=== PATIENT | female | born 1975 | race Hispanic/Latino ===

== ENCOUNTER 2019-07-25 12:10 | Inpatient (IN) | payer MEDICAID | END 2019-07-27 18:22 | disposition home or self-care (01) | LOC: EDH 12:10 → EDHIP 15:33 → 3CH 17:24 | DX: A41.9 Sepsis, unspecified organism (principal); E87.2 Acidosis; E11.65 Type 2 diabetes mellitus with hyperglycemia; N39.0 Urinary tract infection, site not specified; E66.01 Morbid (severe) obesity due to excess calories; Z68.43 Body mass index [BMI] 50.0-59.9, adult; E86.1 Hypovolemia ==

== ENCOUNTER 2021-02-20 11:48 | Inpatient (IN) | payer MEDICAID, OTHER ==
[~2021-02-20] VITALS: Ht 162.6 cm; Wt 98.9 kg
[~2021-02-20 11:48] MED LIST: CEFD300C3 PO; FERR325T22 PO; FURO40TA5 PO; INSREG SQ; INSU100I35 SQ; LISI40TA9 PO; METF-446 PO; PREG150C PO; SIMV-46 PO; VENL-63 PO
[2021-02-20 12:27] LABS: APPEARANCE,URINE CLEAR (CLEAR); BILIRUBIN,URINE MODERATE (NEGATIVE); COLOR,URINE ORANGE (YELLOW); GLUCOSE, URINE (UA) 100 mg/dL (NEGATIVE); KETONES,URINE 15 mg/dL (NEGATIVE); LEUKOCYTE ESTERASE ,URINE NEGATIVE (NEGATIVE); NITRATE,URINE POSITIVE (NEGATIVE); OCCULT BLOOD,URINE NEGATIVE (NEGATIVE); PH,URINE 6.5 (5.0-8.0); PROTEIN,URINE 100 mg/dL (NEGATIVE); UROBILINOGEN,URINE >=8.0 mg/dL (0.2-1.0)
[2021-02-20 12:47] LABS: BASOPHILS % (AUTO) 0.3 % (0.0-5.0); EOSINOPHILS % (AUTO) 4.4 % (0.0-8.0); HEMATOCRIT 42.8 % (36-48); LYMPHOCYTES % (AUTO) 16.6 % (21.0-51.0); MEAN CORPUSCULAR HEMOGLOBIN 27.8 pg (27.0-33.0); MEAN CORPUSCULAR HGB CONC 34.8 g/dL (32.0-36.0); MEAN CORPUSCULAR VOLUME 79.9 fL (79-99); MONOCYTES % (AUTO) 6.2 % (3.0-13.0); NEUTROPHILS % (AUTO) 72.2 % (40.0-77.0); PLATELET COUNT (AUTO) 219 K/uL (130-400); RED BLOOD CELL COUNT(AUTO) 5.36 MIL/uL (4.00-5.50); WHITE BLOOD COUNT (AUTO) 7.9 K/uL (4.8-10.8)
[2021-02-20 12:49] LABS: BACTERIA,URINE Moderate /HPF (None Seen); MUCUS,URINE Moderate LPF (None Seen); RBC,URINE 0-1 /HPF (0-1); SQUAMOUS EPITHELIAL CELL,UR Many /HPF (0-2)
[2021-02-20] MEDS ORDERED: ACETAMINOPHEN 325 MG TAB ONE (13:25)
[2021-02-20] MEDS ORDERED: ZOSYN 3.375GM+NS 50ML 50 ML IV ONE ×2 (13:25→22:01)
[2021-02-20] MEDS ORDERED: ONDANSETRON 4MG INJ ONE (13:25)
[2021-02-20] MEDS ORDERED: KETOROLAC 30MG VIAL (30MG/ML) ONE (13:25)
[2021-02-20 13:26] LABS: CREATININE 0.5 mg/dL (0.5-1.5); POTASSIUM 3.3 mmol/L (3.5-5.1)
[2021-02-20] MEDS ORDERED: MORPHINE 2 MG SYG ONE ×3 (13:26→22:01)
[2021-02-20 13:30] LABS: ALBUMIN 3.1 g/dL (3.5-5.0); BILIRUBIN,TOTAL 0.8 mg/dL (0.2-1.0); TOTAL PROTEIN, SERUM 7.4 g/dL (6.0-8.3)
[2021-02-20 17:18] LABS: HEMOGLOBIN A1C 11.9 % (4.0-6.0)
[2021-02-20 17:43] LABS: AMPHET/METH SCREEN,URINE NEGATIVE (NEGATIVE); BARBITURATE SCREEN, URINE NEGATIVE (NEGATIVE); BENZODIAZEPINES SCREEN,URINE NEGATIVE (NEGATIVE); CANNABINOID SCREEN,URINE POSITIVE (NEGATIVE); COCAINE SCREEN,URINE NEGATIVE (NEGATIVE); OPIATE SCREEN,URINE NEGATIVE (NEGATIVE); PHENCYCLIDINE SCREEN,URINE NEGATIVE (NEGATIVE)
[2021-02-20 19:38] LABS: CHOLESTEROL 199 mg/dL (<200); HDL CHOLESTEROL 111 mg/dL (35-85); LDL DIRECT 113 mg/dL (0-99); TRIGLYCERIDES 166 mg/dL (30-200)
[2021-02-20] MEDS ORDERED: FAMOTIDINE 20MG VIAL IV ONE (22:02)
[2021-02-21 08:18] LABS: BASOPHILS % (AUTO) 0.4 % (0.0-5.0); EOSINOPHILS % (AUTO) 5.5 % (0.0-8.0); HEMATOCRIT 42.6 % (36-48); LYMPHOCYTES % (AUTO) 47.1 % (21.0-51.0); MEAN CORPUSCULAR HEMOGLOBIN 27.6 pg (27.0-33.0); MEAN CORPUSCULAR HGB CONC 33.6 g/dL (32.0-36.0); MEAN CORPUSCULAR VOLUME 82.1 fL (79-99); MONOCYTES % (AUTO) 5.7 % (3.0-13.0); NEUTROPHILS % (AUTO) 40.9 % (40.0-77.0); PLATELET COUNT (AUTO) 235 K/uL (130-400); RED BLOOD CELL COUNT(AUTO) 5.19 MIL/uL (4.00-5.50); RED CELL DISTRIBUTION WIDTH 14.4 % (11.0-15.5); WHITE BLOOD COUNT (AUTO) 5.2 K/uL (4.8-10.8)
[2021-02-21 08:37] LABS: ALBUMIN 2.9 g/dL (3.5-5.0); BILIRUBIN,TOTAL 0.6 mg/dL (0.2-1.0); CREATININE 0.5 mg/dL (0.5-1.5); POTASSIUM 3.7 mmol/L (3.5-5.1); TOTAL PROTEIN, SERUM 6.9 g/dL (6.0-8.3)
[2021-02-21] MEDS: ENOXAPARIN SODIUM 40 MG/0.4 ML SYRINGE SQ SCH (09:00)
[2021-02-21] MEDS: FAMOTIDINE 20MG VIAL IV SCH ×2 (09:00→21:20)
[2021-02-21] MEDS ORDERED: ZOSYN 3.375GM+NS 50ML 50 ML IV ONE (09:03)
[2021-02-21] MEDS ORDERED: MORPHINE 2 MG SYG ONE (09:04)
[2021-02-21] MEDS ORDERED: FAMOTIDINE 20MG VIAL IV ONE (09:04)
[2021-02-21] MEDS ORDERED: 0.9%NACL 50ML 50 ML IV ONE (09:05)
[2021-02-21] MEDS ORDERED: LACTULOSE 20 GM/30 ML UDCUP ONE (10:42)
[2021-02-21] MEDS ORDERED: LACTULOSE 20 GM/30 ML UDCUP PO SCH (10:45)
[2021-02-21 11:00] VITALS: BP 168/86
[2021-02-21] MEDS: INSULIN HUMULIN R 100 UNIT/ML 3ML SQ SCH ×3 (11:30→21:00)
[2021-02-21] MEDS: 0.9%NACL 1000ML 1,000 ML IV SCH ×2 (11:43→21:28)
[2021-02-21 12:00] VITALS: BP 152/84
[2021-02-21] MEDS ORDERED: LACTULOSE 20 GM/30 ML UDCUP PO PRN (12:45)
[2021-02-21 16:00] VITALS: BP 126/83
[2021-02-21] MEDS: ZOSYN 3.375GM+NS 50ML 50 ML IV SCH (17:32)
[2021-02-21] MEDS: MORPHINE 2 MG SYG IV PRN ×2 (18:12→22:58)
[2021-02-21] MEDS: ONDANSETRON 4MG INJ IV PRN (18:22)
[2021-02-21 19:49] VITALS: BP 130/80
[2021-02-21] MEDS ORDERED: VENL-191 PO (21:36)
[2021-02-21] MEDS ORDERED: FURO40TA5 PO (21:36)
[2021-02-21] MEDS ORDERED: HYDR-4030 PO (21:36)
[2021-02-21] MEDS ORDERED: PREG150C PO (21:36)
[2021-02-21 23:08] VITALS: BP 146/78
[2021-02-22] VITALS (23 sets, daily range): BP systolic 124–176; BP diastolic 71–92
[2021-02-22] MEDS: ZOSYN 3.375GM+NS 50ML 50 ML IV SCH ×3 (01:52→17:51)
[2021-02-22 04:37] LABS: BASOPHILS % (AUTO) 0.5 % (0.0-5.0); EOSINOPHILS % (AUTO) 4.6 % (0.0-8.0); HEMATOCRIT 38.6 % (36-48); LYMPHOCYTES % (AUTO) 46.3 % (21.0-51.0); MEAN CORPUSCULAR HEMOGLOBIN 28.1 pg (27.0-33.0); MEAN CORPUSCULAR HGB CONC 34.5 g/dL (32.0-36.0); MEAN CORPUSCULAR VOLUME 81.4 fL (79-99); MONOCYTES % (AUTO) 6.9 % (3.0-13.0); NEUTROPHILS % (AUTO) 41.4 % (40.0-77.0); PLATELET COUNT (AUTO) 223 K/uL (130-400); RED BLOOD CELL COUNT(AUTO) 4.74 MIL/uL (4.00-5.50); RED CELL DISTRIBUTION WIDTH 14.1 % (11.0-15.5); WHITE BLOOD COUNT (AUTO) 5.9 K/uL (4.8-10.8)
[2021-02-22 04:48] LABS: ALBUMIN 2.6 g/dL (3.5-5.0); BILIRUBIN,TOTAL 0.6 mg/dL (0.2-1.0); CREATININE 0.5 mg/dL (0.5-1.5); POTASSIUM 3.1 mmol/L (3.5-5.1); TOTAL PROTEIN, SERUM 6.5 g/dL (6.0-8.3)
[2021-02-22] MEDS: POTASSIUM CHLORIDE 20MEQ/100ML 100 ML IV PRN ×2 (04:57→09:21)
[2021-02-22] MEDS ORDERED: FLU VACC QS2020-21(6MOS UP)/PF 60 MCG/0.5 ML ML IM ONE ×2 (06:30→17:53)
[2021-02-22] MEDS: INSULIN HUMULIN R 100 UNIT/ML 3ML SQ SCH ×4 (07:30→20:59)
[2021-02-22] MEDS: MORPHINE 2 MG SYG IV PRN ×2 (07:58→16:18)
[2021-02-22] MEDS: 0.9%NACL 1000ML 1,000 ML IV SCH ×3 (08:03→18:12)
[2021-02-22] MEDS: ENOXAPARIN SODIUM 40 MG/0.4 ML SYRINGE SQ SCH (09:00)
[2021-02-22] MEDS: FAMOTIDINE 20MG VIAL IV SCH ×2 (09:21→21:02)
[2021-02-22] MEDS ORDERED: BUPIVACAINE/PF 0.5% 30ML VIAL ONE (11:17)
[2021-02-22] MEDS ORDERED: INDOCYANINE GREEN 25 MG VIAL IJ ONE (12:44)
[2021-02-22] MEDS ORDERED: PROPOFOL 10 MG/ML 20ML VIAL IV ONE (12:59)
[2021-02-22] MEDS ORDERED: FENTANYL CITRATE PF 50 MCG/1 ML 2ML VIAL ONE (13:00)
[2021-02-22] MEDS ORDERED: MIDAZOLAM HCL 1 MG/ML 2ML VIAL ONE (13:00)
[2021-02-22] MEDS ORDERED: ROCURONIUM 10MG/1ML SYR 10 MG/ML ML ONE ×2 (13:00→13:41)
[2021-02-22] MEDS ORDERED: NEOSTIGMINE 5MG/5ML SYR IV ONE (14:25)
[2021-02-22] MEDS ORDERED: GLYCOPYRROLATE 1 MG/5 ML SYRINGE ONE (14:25)
[2021-02-22] MEDS ORDERED: MEPERIDINE-PF 25 MG/ML SYG ONE (14:46)
[2021-02-22] MEDS ORDERED: METOCLOPRAMIDE 10 MG/2 ML VIAL ONE (14:52)
[2021-02-22] MEDS: ONDANSETRON 4MG INJ IV PRN (14:55)
[2021-02-22] MEDS ORDERED: MORPHINE 4 MG SYG IV PRN (16:30)
[2021-02-22] MEDS: ACETAMINOPHEN WITH CODEINE 1 TAB TAB PO PRN (18:17)
[2021-02-23 00:30] VITALS: BP 139/84
[2021-02-23] MEDS: ACETAMINOPHEN WITH CODEINE 1 TAB TAB PO PRN ×2 (02:02→08:45)
[2021-02-23] MEDS: ZOSYN 3.375GM+NS 50ML 50 ML IV SCH ×2 (02:02→10:13)
[2021-02-23] MEDS: 0.9%NACL 1000ML 1,000 ML IV SCH (02:07)
[2021-02-23 04:41] VITALS: BP 138/77
[2021-02-23 05:31] LABS: BASOPHILS % (AUTO) 0.6 % (0.0-5.0); EOSINOPHILS % (AUTO) 1.7 % (0.0-8.0); HEMATOCRIT 40.1 % (36-48); LYMPHOCYTES % (AUTO) 32.5 % (21.0-51.0); MEAN CORPUSCULAR HEMOGLOBIN 28.1 pg (27.0-33.0); MEAN CORPUSCULAR HGB CONC 34.9 g/dL (32.0-36.0); MEAN CORPUSCULAR VOLUME 80.4 fL (79-99); MONOCYTES % (AUTO) 5.2 % (3.0-13.0); NEUTROPHILS % (AUTO) 59.7 % (40.0-77.0); PLATELET COUNT (AUTO) 265 K/uL (130-400); RED BLOOD CELL COUNT(AUTO) 4.99 MIL/uL (4.00-5.50); RED CELL DISTRIBUTION WIDTH 14.2 % (11.0-15.5); WHITE BLOOD COUNT (AUTO) 8.6 K/uL (4.8-10.8)
[2021-02-23 05:45] LABS: BILIRUBIN,TOTAL 0.8 mg/dL (0.2-1.0); CREATININE 0.5 mg/dL (0.5-1.5); POTASSIUM 3.3 mmol/L (3.5-5.1); TOTAL PROTEIN, SERUM 6.9 g/dL (6.0-8.3)
[2021-02-23] MEDS: POTASSIUM CHLORIDE 20MEQ/100ML 100 ML IV PRN (06:18)
[2021-02-23] MEDS ORDERED: KCL 20 MEQ ERTAB PO SCH (07:15)
[2021-02-23] MEDS: INSULIN HUMULIN R 100 UNIT/ML 3ML SQ SCH ×3 (07:30→16:47)
[2021-02-23 08:00] VITALS: BP 146/87
[2021-02-23] MEDS: FAMOTIDINE 20MG VIAL IV SCH (08:43)
[2021-02-23] MEDS: ENOXAPARIN SODIUM 40 MG/0.4 ML SYRINGE SQ SCH (08:44)
[2021-02-23] MEDS: ONDANSETRON 4MG INJ IV PRN (10:34)
[2021-02-23 11:11] VITALS: BP 144/88
[2021-02-23] MEDS ORDERED: ONDA4TAB4 PO (16:19)
[2021-02-23 16:24] VITALS: BP 133/81
== END 2021-02-23 17:55 | disposition home or self-care (01) | DRG 418 ==
LOC: EDH 11:48 → EDHIP 11:49 → WSH 02-21 11:00
PROVIDERS: ADMIT Internal Medicine; ATTEND Internal Medicine
PROC: 8E0W4CZ Robotic Assisted Procedure of Trunk Region, Percutaneous Endoscopic Approach (ICD-10-PCS; 2021-02-22)
PROC: 3E02340 Introduction of Influenza Vaccine into Muscle, Percutaneous Approach (ICD-10-PCS; 2021-02-22)
PROC: 0FT44ZZ Resection of Gallbladder, Percutaneous Endoscopic Approach (ICD-10-PCS; principal; 2021-02-22 12:52)
DX: K80.00 Calculus of gallbladder with acute cholecystitis without obstruction (principal); N39.0 Urinary tract infection, site not specified; E87.1 Hypo-osmolality and hyponatremia; Z68.42 Body mass index [BMI] 45.0-49.9, adult; E66.01 Morbid (severe) obesity due to excess calories; E11.9 Type 2 diabetes mellitus without complications; I10 Essential (primary) hypertension; E78.5 Hyperlipidemia, unspecified; F41.1 Generalized anxiety disorder; K82.8 Other specified diseases of gallbladder; E87.6 Hypokalemia; F41.0 Panic disorder [episodic paroxysmal anxiety]; K59.00 Constipation, unspecified; K76.0 Fatty (change of) liver, not elsewhere classified; Z87.891 Personal history of nicotine dependence; Z23 Encounter for immunization
CPT/HCPCS: 36415; 74176; 76705; 80053; 80061; 80305; 81001; 81025; 82150; 82948; 83036; 83605; 83690; 85025; 87040; 87088; 88304; 93005; G0378; J1650; J1815; J1885; J2175; J2250; J2270; J2405; J2543; J2704; J2710; J2765; J3010; J3480; J3490; J7030; J7120; Q2035

== ENCOUNTER 2021-03-02 06:07 | Emergency (ER) | payer MEDICAID, OTHER ==
[~2021-03-02 06:07] MED LIST changes: -CEFD300C3 PO; +HYDR-4030 PO; +ONDA4TAB4 PO; +VENL-191 PO; -VENL-63 PO
[2021-03-02] MEDS ORDERED: METOCLOPRAMIDE 10 MG/2 ML VIAL ONE (06:53)
[2021-03-02] MEDS ORDERED: ONDANSETRON HCL 4 MG/2 ML VIAL ONE (06:53)
[2021-03-02 06:58] LABS: BASOPHILS % (AUTO) 0.5 % (0.0-5.0); EOSINOPHILS % (AUTO) 2.5 % (0.0-8.0); HEMATOCRIT 40.1 % (36-48); LYMPHOCYTES % (AUTO) 23.8 % (21.0-51.0); MEAN CORPUSCULAR HEMOGLOBIN 27.7 pg (27.0-33.0); MEAN CORPUSCULAR HGB CONC 34.2 g/dL (32.0-36.0); MEAN CORPUSCULAR VOLUME 81.2 fL (79-99); MONOCYTES % (AUTO) 7.2 % (3.0-13.0); NEUTROPHILS % (AUTO) 65.5 % (40.0-77.0); PLATELET COUNT (AUTO) 361 K/uL (130-400); RED BLOOD CELL COUNT(AUTO) 4.94 MIL/uL (4.00-5.50); RED CELL DISTRIBUTION WIDTH 14.2 % (11.0-15.5)
[2021-03-02 07:12] LABS: ALBUMIN 2.9 g/dL (3.5-5.0); CREATININE 0.5 mg/dL (0.5-1.5); POTASSIUM 3.1 mmol/L (3.5-5.1); TOTAL PROTEIN, SERUM 7.1 g/dL (6.0-8.3)
[2021-03-02 08:10] LABS: APPEARANCE,URINE Clear (CLEAR); BILIRUBIN,URINE Negative (NEGATIVE); COLOR,URINE Yellow (YELLOW); GLUCOSE, URINE (UA) Negative (NEGATIVE); KETONES,URINE Negative (NEGATIVE); LEUKOCYTE ESTERASE ,URINE Small (NEGATIVE); NITRATE,URINE Negative (NEGATIVE); OCCULT BLOOD,URINE Negative (NEGATIVE); PH,URINE 7.5 (5.0-8.0); PROTEIN,URINE Negative (NEGATIVE)
[2021-03-02] MEDS ORDERED: IOHEXOL-350 75 ML VIAL IV ONE (08:14)
[2021-03-02 08:27] LABS: BACTERIA,URINE Rare /HPF (None Seen); RBC,URINE 0-1 /HPF (0-1); SQUAMOUS EPITHELIAL CELL,UR Few /HPF (0-2); WBC,URINE 0-1 /HPF (0-1)
[2021-03-02] MEDS ORDERED: KETOROLAC TROMETHAMINE 30MG/ML ONE (10:02)
== END 2021-03-02 10:39 | disposition home or self-care (01) ==
LOC: EDH 06:07
DX: G89.18 Other acute postprocedural pain (principal); R10.32 Left lower quadrant pain; R11.2 Nausea with vomiting, unspecified; I10 Essential (primary) hypertension; E11.9 Type 2 diabetes mellitus without complications; M19.90 Unspecified osteoarthritis, unspecified site; F41.9 Anxiety disorder, unspecified; F32.9 Major depressive disorder, single episode, unspecified; Z72.0 Tobacco use; Z90.49 Acquired absence of other specified parts of digestive tract; Z98.890 Other specified postprocedural states
CPT/HCPCS: 36415; 74177; 80053; 81001; 83605; 83690; 85025; 96361; 96374; 96375; 99285; J1885; J2405; J2765; Q9967

== ENCOUNTER 2021-07-12 16:23 | Emergency (ER) | payer MEDICAID ==
[~2021-07-12] VITALS: Ht 162.6 cm; Wt 99.8 kg
[2021-07-12 16:23] VITALS: BP 163/85
== END 2021-07-12 21:10 | disposition left against medical advice (07) ==
LOC: EDH 16:23
DX: Z53.21 Procedure and treatment not carried out due to patient leaving prior to being seen by health care provider (principal)

== ENCOUNTER 2022-01-15 10:23 | Emergency (ER) | payer MEDICAID ==
[~2022-01-15] VITALS: Ht 162.6 cm; Wt 102.2 kg
[2022-01-15 11:44] LABS: APPEARANCE,URINE CLEAR (CLEAR); BILIRUBIN,URINE NEGATIVE (NEGATIVE); COLOR,URINE YELLOW (YELLOW); GLUCOSE, URINE (UA) NEGATIVE (NEGATIVE); HCG,QUAL RESULT NEGATIVE (NEGATIVE); KETONES,URINE NEGATIVE (NEGATIVE); LEUKOCYTE ESTERASE ,URINE NEGATIVE (NEGATIVE); NITRATE,URINE NEGATIVE (NEGATIVE); OCCULT BLOOD,URINE NEGATIVE (NEGATIVE); PROTEIN,URINE NEGATIVE (NEGATIVE); UROBILINOGEN,URINE 0.2 mg/dL (0.2-1.0)
[2022-01-15 12:09] LABS: BASOPHILS % (AUTO) 0.7 % (0.0-5.0); HEMATOCRIT 36.4 % (36-48); LYMPHOCYTES % (AUTO) 32.9 % (21.0-51.0); MEAN CORPUSCULAR HEMOGLOBIN 28.2 pg (27.0-33.0); MEAN CORPUSCULAR VOLUME 85.6 fL (79-99); MONOCYTES % (AUTO) 4.7 % (3.0-13.0); NEUTROPHILS % (AUTO) 56.2 % (40.0-77.0); PLATELET COUNT (AUTO) 294 K/uL (130-400); RED BLOOD CELL COUNT(AUTO) 4.25 MIL/uL (4.00-5.50); RED CELL DISTRIBUTION WIDTH 13.6 % (11.0-15.5); WHITE BLOOD COUNT (AUTO) 7.6 K/uL (4.8-10.8)
[2022-01-15 12:16] LABS: CREATININE 0.5 mg/dL (0.5-1.5)
[2022-01-15 12:21] LABS: ALBUMIN 3.2 g/dL (3.5-5.0); BILIRUBIN,TOTAL 0.4 mg/dL (0.2-1.0); CRP QUANTITATIVE 8.5 mg/L (0.00-9.0); TOTAL PROTEIN, SERUM 7.1 g/dL (6.0-8.3)
[2022-01-15] MEDS ORDERED: GABA300S PO (12:45)
[2022-01-15] MEDS ORDERED: ACET-2247 PO (12:45)
[2022-01-15] MEDS ORDERED: CYCL10TA16 PO (12:45)
[2022-01-15] MEDS ORDERED: CYCLOBENZAPRINE HCL 10 MG TABLET PO ONE (13:00)
[2022-01-15] MEDS ORDERED: HYDROCODONE/ACETAMINOPHEN 10/325 MG TAB PO ONE (13:00)
[2022-01-15 14:00] VITALS: BP 156/80
== END 2022-01-15 13:46 | disposition home or self-care (01) ==
LOC: EDH 10:23
DX: B07.0 Plantar wart (principal); E11.9 Type 2 diabetes mellitus without complications; I10 Essential (primary) hypertension; E66.9 Obesity, unspecified; E78.00 Pure hypercholesterolemia, unspecified; Z90.49 Acquired absence of other specified parts of digestive tract; Z98.890 Other specified postprocedural states; Z79.4 Long term (current) use of insulin; Z79.899 Other long term (current) drug therapy
CPT/HCPCS: 36415; 73630; 80053; 81003; 81025; 83605; 85025; 86140

== ENCOUNTER 2022-03-09 13:16 | Emergency (ER) | payer MEDICAID ==
[~2022-03-09] VITALS: Ht 157.5 cm; Wt 99.8 kg
[~2022-03-09 13:16] MED LIST changes: +ACET-2247 PO; +CYCL10TA16 PO; +GABA300S PO
[2022-03-09] MEDS ORDERED: KETOROLAC 60 MG VIAL (30MG/ML) IM ONE (14:30)
[2022-03-09 15:01] VITALS: BP 115/79
== END 2022-03-09 15:18 | disposition home or self-care, planned readmission (81) ==
LOC: EDH 13:16
DX: S53.401A Unspecified sprain of right elbow, initial encounter (principal); E11.9 Type 2 diabetes mellitus without complications; E78.00 Pure hypercholesterolemia, unspecified; I10 Essential (primary) hypertension; Z79.899 Other long term (current) drug therapy; Z79.4 Long term (current) use of insulin; Z79.84 Long term (current) use of oral hypoglycemic drugs; Z90.89 Acquired absence of other organs; Z90.49 Acquired absence of other specified parts of digestive tract; Z98.890 Other specified postprocedural states; W18.30XA Fall on same level, unspecified, initial encounter; Y93.89 Activity, other specified; Y92.89 Other specified places as the place of occurrence of the external cause; Y99.8 Other external cause status
CPT/HCPCS: 73080; 81025; J1885

== ENCOUNTER 2022-07-08 22:51 | Emergency (ER) | payer MEDICAID ==
[~2022-07-08] VITALS: Ht 162.6 cm; Wt 104.3 kg
[~2022-07-08 22:51] MED LIST changes: -ACET-2247 PO; +ATOR40TA71 PO; -CYCL10TA16 PO; -FURO40TA5 PO; +GABA300C PO; -GABA300S PO; +HYDR-3422 PO; -HYDR-4030 PO; +LEVO-70 PO; -ONDA4TAB4 PO; -PREG150C PO; +QUET50TA PO; -SIMV-46 PO
[2022-07-08] MEDS ORDERED: AMOX1TAB16 PO (23:15)
[2022-07-08] MEDS ORDERED: ACET-2079 PO (23:15)
[2022-07-08 23:30] VITALS: BP 125/74
[2022-07-08] MEDS ORDERED: KETOROLAC 30MG VIAL (30MG/ML) IM ONE (23:30)
[2022-07-08] MEDS ORDERED: AMOX/CLAV 875/125MG TAB PO ONE (23:30)
[2022-07-08] MEDS ORDERED: ACETAMINOPHEN WITH CODEINE 1 TAB TAB PO ONE (23:30)
== END 2022-07-08 23:47 | disposition home or self-care (01) ==
LOC: EDH 22:51
DX: K08.89 Other specified disorders of teeth and supporting structures (principal); E11.9 Type 2 diabetes mellitus without complications; F32.A Depression, unspecified; F41.9 Anxiety disorder, unspecified; I10 Essential (primary) hypertension; E78.00 Pure hypercholesterolemia, unspecified; E66.9 Obesity, unspecified; Z79.1 Long term (current) use of non-steroidal anti-inflammatories (NSAID); Z79.4 Long term (current) use of insulin; Z79.899 Other long term (current) drug therapy; Z90.49 Acquired absence of other specified parts of digestive tract; Z68.39 Body mass index [BMI] 39.0-39.9, adult
CPT/HCPCS: 99283; 96372; J1885

== ENCOUNTER 2022-08-22 04:04 | Emergency (ER) | payer MEDICAID ==
[~2022-08-22] VITALS: Ht 162.6 cm; Wt 109.8 kg
[~2022-08-22 04:04] MED LIST changes: +ACET-2079 PO; +AMOX1TAB16 PO
[2022-08-22 04:49] LABS: BASOPHILS % (AUTO) 0.5 % (0.0-5.0); EOSINOPHILS % (AUTO) 8.8 % (0.0-8.0); HEMATOCRIT 34.7 % (36-48); LYMPHOCYTES % (AUTO) 27.2 % (21.0-51.0); MEAN CORPUSCULAR HEMOGLOBIN 27.9 pg (27.0-33.0); MEAN CORPUSCULAR HGB CONC 33.7 g/dL (32.0-36.0); MEAN CORPUSCULAR VOLUME 82.6 fL (79-99); MONOCYTES % (AUTO) 6.9 % (3.0-13.0); NEUTROPHILS % (AUTO) 56.2 % (40.0-77.0); PLATELET COUNT (AUTO) 281 K/uL (130-400); RED CELL DISTRIBUTION WIDTH 13.1 % (11.0-15.5); WHITE BLOOD COUNT (AUTO) 8.3 K/uL (4.8-10.8)
[2022-08-22 04:54] LABS: BILIRUBIN,URINE NEGATIVE (NEGATIVE); GLUCOSE, URINE (UA) NEGATIVE (NEGATIVE); KETONES,URINE NEGATIVE (NEGATIVE); LEUKOCYTE ESTERASE ,URINE NEGATIVE Leu/uL (NEGATIVE); NITRATE,URINE POSITIVE (NEGATIVE); OCCULT BLOOD,URINE NEGATIVE (NEGATIVE); PROTEIN,URINE NEGATIVE (NEGATIVE); UROBILINOGEN,URINE 0.2 mg/dL (0.2-1.0)
[2022-08-22 05:05] LABS: APPEARANCE,URINE CLEAR (CLEAR); COLOR,URINE YELLOW (YELLOW)
[2022-08-22 05:09] LABS: CREATININE 0.6 mg/dL (0.5-1.5); POTASSIUM 3.5 mmol/L (3.5-5.1)
[2022-08-22 05:10] LABS: BACTERIA,URINE Many /HPF (None Seen); RBC,URINE 0-1 /HPF (0-1); SQUAMOUS EPITHELIAL CELL,UR Rare /HPF (0-2)
[2022-08-22 05:14] LABS: ALBUMIN 3.2 g/dL (3.5-5.0); TOTAL PROTEIN, SERUM 7.4 g/dL (6.0-8.3)
[2022-08-22 05:18] LABS: AMPHET/METH SCREEN,URINE NEGATIVE (NEGATIVE); BARBITURATE SCREEN, URINE NEGATIVE (NEGATIVE); BENZODIAZEPINES SCREEN,URINE POSITIVE (NEGATIVE); CANNABINOID SCREEN,URINE POSITIVE (NEGATIVE); COCAINE SCREEN,URINE NEGATIVE (NEGATIVE); HCG,QUALITATIVE URINE NEGATIVE (NEGATIVE); PHENCYCLIDINE SCREEN,URINE NEGATIVE (NEGATIVE)
[2022-08-22 05:40] LABS: MAGNESIUM 1.4 mg/dL (1.80-2.40)
[2022-08-22] MEDS ORDERED: MAGNESIUM 4GM PREMIX 100ML 100 ML IV PRN (06:00)
[2022-08-22] MEDS ORDERED: POTASSIUM BICARB/CIT AC 25 MEQ TABLET.EFF PO ONE (06:00)
[2022-08-22] MEDS ORDERED: KETOROLAC 30MG VIAL (30MG/ML) IVP ONE (06:30)
[2022-08-22] MEDS ORDERED: MAGNESIUM 2GM PREMIX 50ML 100 ML IV ONE (06:38)
[2022-08-22] MEDS ORDERED: MAGNESIUM 2GM PREMIX 50ML 50 ML IV ONE (08:02)
[2022-08-22] MEDS ORDERED: ACETAMINOPHEN 325 MG TAB PO SCH (09:00)
[2022-08-22 10:45] VITALS: BP 127/70
== END 2022-08-22 10:48 | disposition home or self-care (01) ==
LOC: EDH 04:04
DX: E87.6 Hypokalemia (principal); R53.1 Weakness; E83.42 Hypomagnesemia; T42.4X5A Adverse effect of benzodiazepines, initial encounter; F41.9 Anxiety disorder, unspecified; E11.9 Type 2 diabetes mellitus without complications; E78.00 Pure hypercholesterolemia, unspecified; M54.10 Radiculopathy, site unspecified; F17.210 Nicotine dependence, cigarettes, uncomplicated; Z20.822 Contact with and (suspected) exposure to COVID-19; Z90.89 Acquired absence of other organs; Z90.49 Acquired absence of other specified parts of digestive tract; Z98.890 Other specified postprocedural states; Z79.899 Other long term (current) drug therapy; Z79.84 Long term (current) use of oral hypoglycemic drugs; Z79.4 Long term (current) use of insulin; Y92.89 Other specified places as the place of occurrence of the external cause
CPT/HCPCS: 99285; 96365; 70450; 96366; 87635; 96375; 82550; 83735; 84484; 80053; 80305; 85025; 87077; 87088; 87186; 87804 ×2; 81001; 81025; 36415; 73030; 93005; C9803; J3475 ×2; J1885

== ENCOUNTER 2022-11-24 13:30 | Emergency (ER) | payer MEDICAID ==
[~2022-11-24] VITALS: Ht 162.6 cm; Wt 111.1 kg
[2022-11-24 16:35] LABS: APPEARANCE,URINE CLEAR (CLEAR); BILIRUBIN,URINE NEGATIVE (NEGATIVE); COLOR,URINE LIGHT-YELLOW (YELLOW); GLUCOSE, URINE (UA) NEGATIVE (NEGATIVE); KETONES,URINE NEGATIVE (NEGATIVE); LEUKOCYTE ESTERASE ,URINE NEGATIVE Leu/uL (NEGATIVE); NITRATE,URINE NEGATIVE (NEGATIVE); OCCULT BLOOD,URINE NEGATIVE (NEGATIVE); PROTEIN,URINE NEGATIVE (NEGATIVE); UROBILINOGEN,URINE 0.2 mg/dL (0.2-1.0)
[2022-11-24 16:51] VITALS: BP 118/83
[2022-11-24 17:00] LABS: BACTERIA,URINE FEW /HPF (None Seen); MUCUS,URINE RARE LPF (None Seen); RBC,URINE 0-1 /HPF (0-1); SQUAMOUS EPITHELIAL CELL,UR RARE /HPF (0-2)
[2022-11-24 17:26] LABS: BASOPHILS % (AUTO) 0.4 % (0.0-5.0); EOSINOPHILS % (AUTO) 4.5 % (0.0-8.0); HEMATOCRIT 39.4 % (36-48); LYMPHOCYTES % (AUTO) 31.7 % (21.0-51.0); MEAN CORPUSCULAR HGB CONC 34.8 g/dL (32.0-36.0); MEAN CORPUSCULAR VOLUME 77.7 fL (79-99); MONOCYTES % (AUTO) 5.4 % (3.0-13.0); NEUTROPHILS % (AUTO) 57.7 % (40.0-77.0); PLATELET COUNT (AUTO) 250 K/uL (130-400); RED BLOOD CELL COUNT(AUTO) 5.07 MIL/uL (4.00-5.50); RED CELL DISTRIBUTION WIDTH 13.6 % (11.0-15.5); WHITE BLOOD COUNT (AUTO) 11.1 K/uL (4.8-10.8)
[2022-11-24 17:39] LABS: ALBUMIN 3.8 g/dL (3.5-5.0); CREATININE 1.1 mg/dL (0.5-1.5); TOTAL PROTEIN, SERUM 8.5 g/dL (6.0-8.3)
[2022-11-24 17:44] LABS: POTASSIUM 2.9 mmol/L (3.5-5.1)
[2022-11-24] MEDS ORDERED: POTASSIUM BICARB/CIT AC 25 MEQ TABLET.EFF PO ONE (18:00)
[2022-11-24] MEDS ORDERED: KETOROLAC 30MG VIAL (30MG/ML) IM ONE (18:30)
== END 2022-11-24 19:34 | disposition home or self-care (01) ==
LOC: EDH 13:30
DX: E87.6 Hypokalemia (principal); R10.10 Upper abdominal pain, unspecified; R11.2 Nausea with vomiting, unspecified; F32.9 Major depressive disorder, single episode, unspecified; F41.9 Anxiety disorder, unspecified; E11.9 Type 2 diabetes mellitus without complications; I10 Essential (primary) hypertension; E78.00 Pure hypercholesterolemia, unspecified; E66.9 Obesity, unspecified; Z79.899 Other long term (current) drug therapy; Z79.84 Long term (current) use of oral hypoglycemic drugs
CPT/HCPCS: 99284; 74176; 80053; 83690; 85025; 81001; 36415; 96372; J1885

== ENCOUNTER 2022-12-12 08:14 | Emergency (ER) | payer MEDICAID ==
[~2022-12-12] VITALS: Ht 162.6 cm; Wt 112.9 kg
[2022-12-12 08:38] LABS: HEMATOCRIT 36.1 % (36-48); MEAN CORPUSCULAR HEMOGLOBIN 27.2 pg (27.0-33.0); MEAN CORPUSCULAR HGB CONC 32.7 g/dL (32.0-36.0); MEAN CORPUSCULAR VOLUME 83.2 fL (79-99); RED BLOOD CELL COUNT(AUTO) 4.34 MIL/uL (4.00-5.50); RED CELL DISTRIBUTION WIDTH 15.4 % (11.0-15.5); WHITE BLOOD COUNT (AUTO) 9.7 K/uL (4.8-10.8)
[2022-12-12 08:46] LABS: CREATININE 0.6 mg/dL (0.5-1.5); POTASSIUM 3.7 mmol/L (3.5-5.1)
[2022-12-12 08:47] LABS: APPEARANCE,URINE CLEAR (CLEAR); BILIRUBIN,URINE NEGATIVE (NEGATIVE); COLOR,URINE LIGHT-YELLOW (YELLOW); GLUCOSE, URINE (UA) 70 mg/dL (NEGATIVE); KETONES,URINE NEGATIVE (NEGATIVE); LEUKOCYTE ESTERASE ,URINE 25 Leu/uL (NEGATIVE); NITRATE,URINE NEGATIVE (NEGATIVE); OCCULT BLOOD,URINE NEGATIVE (NEGATIVE); PROTEIN,URINE 10 mg/dL (NEGATIVE)
[2022-12-12 08:51] LABS: ALBUMIN 3.4 g/dL (3.5-5.0); TOTAL PROTEIN, SERUM 7.9 g/dL (6.0-8.3)
[2022-12-12 08:51] LABS: BACTERIA,URINE RARE /HPF (None Seen); MUCUS,URINE RARE LPF (None Seen); SQUAMOUS EPITHELIAL CELL,UR FEW /HPF (0-2)
[2022-12-12] MEDS ORDERED: ONDANSETRON 4MG INJ ONE (10:59)
[2022-12-12] MEDS ORDERED: MORPHINE 2 MG SYG IVP ONE (11:00)
[2022-12-12] MEDS ORDERED: MORPHINE 2 MG SYG ONE (11:00)
[2022-12-12] MEDS ORDERED: ONDANSETRON 4MG INJ IVP ONE (11:00)
[2022-12-12] MEDS ORDERED: LEVOFLOXACIN 500 MG TABLET PO SCH (14:30)
[2022-12-12] MEDS ORDERED: CEPH500B PO (14:32)
[2022-12-12] MEDS ORDERED: IBUP-2070 PO (14:33)
[2022-12-12 14:42] VITALS: BP 130/79
== END 2022-12-12 14:48 | disposition home or self-care (01) ==
LOC: EDH 08:14
DX: N39.0 Urinary tract infection, site not specified (principal); E11.65 Type 2 diabetes mellitus with hyperglycemia; R32 Unspecified urinary incontinence; R53.1 Weakness; G89.29 Other chronic pain; M54.50 Low back pain, unspecified; E66.9 Obesity, unspecified; Z68.41 Body mass index [BMI] 40.0-44.9, adult; F41.9 Anxiety disorder, unspecified; F32.A Depression, unspecified; E78.00 Pure hypercholesterolemia, unspecified; I10 Essential (primary) hypertension; Z79.4 Long term (current) use of insulin; Z79.84 Long term (current) use of oral hypoglycemic drugs; Z79.899 Other long term (current) drug therapy; Z90.49 Acquired absence of other specified parts of digestive tract; Z90.710 Acquired absence of both cervix and uterus; Z20.822 Contact with and (suspected) exposure to COVID-19
CPT/HCPCS: 99285; 72148; 70450; 96374; 87635; 96375; 80053; 85027; 87077; 87088; 87186; 81001; 81025; 36415; 72125; 74176; 51702; 93005; C9803; J2405

== ENCOUNTER 2023-03-07 19:11 | Observation (INO) | payer MEDICAID ==
[~2023-03-07] VITALS: Ht 162.6 cm; Wt 110.5 kg
[~2023-03-07 19:11] MED LIST changes: +CEPH500B PO; +IBUP-2070 PO
[2023-03-07] MEDS ORDERED: 0.9%NACL 1000ML 1,000 ML IV ONE ×2 (21:30→23:00)
[2023-03-07 21:32] LABS: BASOPHILS % (AUTO) 0.4 % (0.0-5.0); EOSINOPHILS % (AUTO) 6.3 % (0.0-8.0); HEMATOCRIT 35.5 % (36-48); LYMPHOCYTES % (AUTO) 25.1 % (21.0-51.0); MEAN CORPUSCULAR HEMOGLOBIN 27.8 pg (27.0-33.0); MEAN CORPUSCULAR HGB CONC 34.4 g/dL (32.0-36.0); MEAN CORPUSCULAR VOLUME 80.9 fL (79-99); MONOCYTES % (AUTO) 4.5 % (3.0-13.0); NEUTROPHILS % (AUTO) 63.2 % (40.0-77.0); PLATELET COUNT (AUTO) 316 K/uL (130-400); RED BLOOD CELL COUNT(AUTO) 4.39 MIL/uL (4.00-5.50); WHITE BLOOD COUNT (AUTO) 12.9 K/uL (4.8-10.8)
[2023-03-07 21:38] LABS: HCG,QUALITATIVE URINE NEGATIVE (NEGATIVE)
[2023-03-07 21:42] LABS: APPEARANCE,URINE CLEAR (CLEAR); BILIRUBIN,URINE NEGATIVE (NEGATIVE); COLOR,URINE YELLOW (YELLOW); GLUCOSE, URINE (UA) >=1000 mg/dL (NEGATIVE); KETONES,URINE NEGATIVE (NEGATIVE); LEUKOCYTE ESTERASE ,URINE NEGATIVE Leu/uL (NEGATIVE); NITRATE,URINE NEGATIVE (NEGATIVE); OCCULT BLOOD,URINE NEGATIVE (NEGATIVE); PH,URINE 6.5 (5.0-8.0); PROTEIN,URINE 30 mg/dL (NEGATIVE); UROBILINOGEN,URINE 0.2 mg/dL (0.2-1.0)
[2023-03-07 21:50] LABS: BACTERIA,URINE RARE /HPF (None Seen); MUCUS,URINE RARE LPF (None Seen); SQUAMOUS EPITHELIAL CELL,UR RARE /HPF (0-2)
[2023-03-07 22:00] LABS: ALBUMIN 3.4 g/dL (3.5-5.0); CREATININE 1.2 mg/dL (0.5-1.5); TOTAL PROTEIN, SERUM 7.6 g/dL (6.0-8.3)
[2023-03-07 22:13] LABS: POTASSIUM 2.8 mmol/L (3.5-5.1)
[2023-03-07] MEDS ORDERED: ONDANSETRON 4MG INJ IVP ONE (22:30)
[2023-03-07] MEDS ORDERED: INSULIN HUMULIN R 100 UNIT/ML 3ML IV ONE (22:30)
[2023-03-07] MEDS: LEVOFLOXACIN 500 MG/D5W 100 ML 100 ML IV SCH (22:57)
[2023-03-07] MEDS ORDERED: POTASSIUM BICARB/CIT AC 25 MEQ TABLET.EFF PO ONE (23:00)
[2023-03-07 23:17] LABS: ABG OXYGEN SATURATION 59.7 % (95.0-99.0); BASE EXCESS,VENOUS BLOOD GAS -2.2 (-2.0-3.0); HCO3,VENOUS BLOOD GAS 23.1 (21.0-28.0); PCO2,VENOUS BLOOD GAS 42 (32-45); PH,VENOUS BLOOD GAS 7.362 (7.350-7.450)
[2023-03-08] MEDS ORDERED: MORPHINE 2 MG SYG IVP ONE
[2023-03-08] MEDS ORDERED: POTASSIUM CHLORIDE 20MEQ/100ML 100 ML IV PRN (03:30)
[2023-03-08] MEDS ORDERED: LIDOCAINE HCL-MPF 1% 2ML VIAL IV PRN (03:30)
[2023-03-08] MEDS ORDERED: POTASSIUM CHLORIDE 10% ELIXIR 20 MEQ/15 ML UDCUP PO PRN (03:30)
[2023-03-08] MEDS: 0.9%NACL 1000ML 1,000 ML IV SCH ×2 (05:18→21:02)
[2023-03-08 05:24] LABS: BASOPHILS % (AUTO) 0.4 % (0.0-5.0); EOSINOPHILS % (AUTO) 7.7 % (0.0-8.0); HEMATOCRIT 32.1 % (36-48); LYMPHOCYTES % (AUTO) 28.4 % (21.0-51.0); MEAN CORPUSCULAR HEMOGLOBIN 27.7 pg (27.0-33.0); MEAN CORPUSCULAR HGB CONC 34.3 g/dL (32.0-36.0); MEAN CORPUSCULAR VOLUME 80.9 fL (79-99); MONOCYTES % (AUTO) 5.7 % (3.0-13.0); NEUTROPHILS % (AUTO) 57.4 % (40.0-77.0); PLATELET COUNT (AUTO) 250 K/uL (130-400); RED BLOOD CELL COUNT(AUTO) 3.97 MIL/uL (4.00-5.50); RED CELL DISTRIBUTION WIDTH 15.1 % (11.0-15.5)
[2023-03-08 05:42] LABS: HEMOGLOBIN A1C 9.3 % (4.0-6.0)
[2023-03-08 05:45] LABS: ALBUMIN 2.9 g/dL (3.5-5.0); CREATININE 0.7 mg/dL (0.5-1.5); MAGNESIUM 1.1 mg/dL (1.80-2.40); PHOSPHORUS 2.8 mg/dL (2.5-4.9); POTASSIUM 3.1 mmol/L (3.5-5.1); TOTAL PROTEIN, SERUM 6.4 g/dL (6.0-8.3)
[2023-03-08 05:52] VITALS: BP 146/75
[2023-03-08] MEDS ORDERED: QUET100T34 PO (06:00)
[2023-03-08] MEDS ORDERED: FURO40TA5 PO (06:00)
[2023-03-08] MEDS ORDERED: ONDA4TAB10 PO (06:00)
[2023-03-08] MEDS ORDERED: VENL75CA97 PO (06:00)
[2023-03-08] MEDS ORDERED: ALPR2TAB7 PO (06:00)
[2023-03-08] MEDS: KCL 20 MEQ ERTAB PO PRN ×3 (06:32→18:29)
[2023-03-08] MEDS: INSULIN HUMULIN R 100 UNIT/ML 3ML SQ SCH ×3 (06:33→21:04)
[2023-03-08 07:30] VITALS: BP 151/82
[2023-03-08 08:01] LABS: INR 0.97 (0.85-1.15); PROTHROMBIN TIME 10.6 SEC (9.6-11.6)
[2023-03-08] MEDS ORDERED: ACETAMINOPHEN 500 MG TABLET PO SCH (09:00)
[2023-03-08] MEDS ORDERED: ONDANSETRON 4MG INJ IVP PRN (09:00)
[2023-03-08] MEDS ORDERED: ENOXAPARIN SODIUM 60 MG/0.6 ML SQ ONE (09:00)
[2023-03-08] MEDS: FAMOTIDINE 20MG VIAL IV SCH ×2 (10:30→21:01)
[2023-03-08] MEDS: METRONIDAZOLE 500MG/100ML BAG 100 ML IVPB SCH ×3 (10:30→21:05)
[2023-03-08 11:00] VITALS: BP 142/71
[2023-03-08 16:00] VITALS: BP 151/74
[2023-03-08] MEDS: ALPRAZOLAM 1 MG TAB PO SCH ×2 (16:05→21:02)
[2023-03-08] MEDS: FERROUS SULFATE 325 MG TABLET.DR PO SCH ×2 (16:05→21:02)
[2023-03-08 20:00] VITALS: BP 126/61
[2023-03-08] MEDS ORDERED: ATORVASTATIN 40 MG TABLET PO SCH (21:00)
[2023-03-08] MEDS: GABAPENTIN 300 MG CAPSULE PO SCH (21:02)
[2023-03-08] MEDS: LEVOFLOXACIN 500 MG/D5W 100 ML 100 ML IV SCH (21:05)
[2023-03-08] MEDS ORDERED: QUETIAPINE FUMARATE 25 MG TAB ONE (23:55)
[2023-03-08] MEDS ORDERED: QUETIAPINE FUMARATE 100 MG TAB ONE (23:55)
[2023-03-09] VITALS: BP 150/80
[2023-03-09] MEDS: MAGNESIUM 2GM PREMIX 50ML 50 ML IV PRN ×2 (00:13→05:39)
[2023-03-09 03:23] VITALS: BP 156/89
[2023-03-09] MEDS: 0.9%NACL 1000ML 1,000 ML IV SCH (04:07)
[2023-03-09 04:51] LABS: BASOPHILS % (AUTO) 0.7 % (0.0-5.0); EOSINOPHILS % (AUTO) 9.5 % (0.0-8.0); HEMATOCRIT 33.4 % (36-48); LYMPHOCYTES % (AUTO) 31.7 % (21.0-51.0); MEAN CORPUSCULAR HEMOGLOBIN 27.5 pg (27.0-33.0); MEAN CORPUSCULAR HGB CONC 33.2 g/dL (32.0-36.0); MEAN CORPUSCULAR VOLUME 82.7 fL (79-99); MONOCYTES % (AUTO) 6.5 % (3.0-13.0); PLATELET COUNT (AUTO) 238 K/uL (130-400); RED BLOOD CELL COUNT(AUTO) 4.04 MIL/uL (4.00-5.50); RED CELL DISTRIBUTION WIDTH 15.4 % (11.0-15.5); WHITE BLOOD COUNT (AUTO) 7.2 K/uL (4.8-10.8)
[2023-03-09 05:03] LABS: ALBUMIN 2.8 g/dL (3.5-5.0); CREATININE 0.8 mg/dL (0.5-1.5); CRP QUANTITATIVE 8.9 mg/L (0.00-9.0); MAGNESIUM 1.9 mg/dL (1.80-2.40); TOTAL PROTEIN, SERUM 6.2 g/dL (6.0-8.3)
[2023-03-09] MEDS: METRONIDAZOLE 500MG/100ML BAG 100 ML IVPB SCH ×2 (05:12→14:26)
[2023-03-09] MEDS: INSULIN HUMULIN R 100 UNIT/ML 3ML SQ SCH ×3 (06:01→16:30)
[2023-03-09 07:30] VITALS: BP 136/74
[2023-03-09] MEDS ORDERED: LEVO-70 PO (08:50)
[2023-03-09] MEDS ORDERED: INSULIN HUMULIN R 100 UNIT/ML 3ML SQ SCH (09:00)
[2023-03-09] MEDS ORDERED: VENLAFAXINE HCL XR 37.5 MG CAP PO SCH (09:00)
[2023-03-09] MEDS ORDERED: INSULIN HUMULIN 70/30 100 UNIT/ML 3ML SQ SCH (09:00)
[2023-03-09] MEDS: FAMOTIDINE 20MG VIAL IV SCH (09:35)
[2023-03-09] MEDS: ALPRAZOLAM 1 MG TAB PO SCH (09:35)
[2023-03-09] MEDS: GABAPENTIN 300 MG CAPSULE PO SCH (09:35)
[2023-03-09] MEDS: FERROUS SULFATE 325 MG TABLET.DR PO SCH ×2 (09:35→14:00)
[2023-03-09 11:00] VITALS: BP 111/65
[2023-03-09] MEDS ORDERED: ALPRAZOLAM 1 MG TAB PO PRN (11:00)
[2023-03-09 16:00] VITALS: BP 127/75
[2023-03-09] MEDS ORDERED: QUETIAPINE FUMARATE 100 MG TAB PO SCH (21:00)
== END 2023-03-09 17:15 | disposition home or self-care (01) ==
LOC: EDH 19:11 → EDHIP 19:12 → INTOOBSV 19:12 → 4CH 03-08 05:22
PROVIDERS: ADMIT Hospitalist; ATTEND Hospitalist
DX: K52.9 Noninfective gastroenteritis and colitis, unspecified (principal); Z20.822 Contact with and (suspected) exposure to COVID-19; N39.0 Urinary tract infection, site not specified; D72.829 Elevated white blood cell count, unspecified; E86.0 Dehydration; R74.02 Elevation of levels of lactic acid dehydrogenase [LDH]; E87.6 Hypokalemia; E11.9 Type 2 diabetes mellitus without complications; I10 Essential (primary) hypertension; E78.5 Hyperlipidemia, unspecified; F41.8 Other specified anxiety disorders; F31.9 Bipolar disorder, unspecified; E78.00 Pure hypercholesterolemia, unspecified; G43.909 Migraine, unspecified, not intractable, without status migrainosus; E66.9 Obesity, unspecified; Q33.3 Agenesis of lung; K57.90 Diverticulosis of intestine, part unspecified, without perforation or abscess without bleeding; Z88.2 Allergy status to sulfonamides; Z79.899 Other long term (current) drug therapy
CPT/HCPCS: 96361 ×2; 96375 ×2; 99285; 84484; 80053 ×3; 82803; 85025 ×3; 87040 ×2; 87804 ×2; 82948 ×6; 83605 ×2; 82010; 81001; 81025; 36415 ×3; 87635; 93005; 36600; 96376 ×2; 96372 ×2; 96365; 96366 ×2; 96368; 83036; 83735 ×2; 84100; 85610; 85730; 74176; 84145; 96367; 86140; 70450; C9803; J1956 ×2; J7030 ×2; J2405; J3475 ×2; S0028 ×3; J3490 ×5; J1815 ×5; G0378 ×7

== ENCOUNTER 2023-03-19 07:58 | Emergency (ER) | payer MEDICAID ==
[~2023-03-19] VITALS: Ht 162.6 cm; Wt 108.4 kg
[~2023-03-19 07:58] MED LIST changes: -AMOX1TAB16 PO; -CEPH500B PO; +FURO40TA5 PO; -GABA300C PO; -LISI40TA9 PO; +ONDA4TAB10 PO; +QUET100T34 PO; -QUET50TA PO; -VENL-191 PO; +VENL75CA97 PO
[2023-03-19] MEDS ORDERED: GABAPENTIN 300 MG CAPSULE PO STA (08:25)
[2023-03-19] MEDS ORDERED: MORPHINE 4 MG SYG IVP ONE (08:30)
[2023-03-19] MEDS ORDERED: 0.9%NACL 1000ML 1,000 ML IV SCH (08:30)
[2023-03-19] MEDS ORDERED: ONDANSETRON 4MG INJ IV ONE (08:30)
[2023-03-19 09:07] LABS: APPEARANCE,URINE CLEAR (CLEAR); BILIRUBIN,URINE NEGATIVE (NEGATIVE); COLOR,URINE YELLOW (YELLOW); GLUCOSE, URINE (UA) 300 mg/dL (NEGATIVE); KETONES,URINE NEGATIVE (NEGATIVE); LEUKOCYTE ESTERASE ,URINE NEGATIVE Leu/uL (NEGATIVE); NITRATE,URINE NEGATIVE (NEGATIVE); PH,URINE 5.5 (5.0-8.0); PROTEIN,URINE 20 mg/dL (NEGATIVE); UROBILINOGEN,URINE 0.2 mg/dL (0.2-1.0)
[2023-03-19 09:21] LABS: BASOPHILS % (AUTO) 0.2 % (0.0-5.0); EOSINOPHILS % (AUTO) 3.9 % (0.0-8.0); HEMATOCRIT 34.7 % (36-48); LYMPHOCYTES % (AUTO) 6.2 % (21.0-51.0); MEAN CORPUSCULAR HGB CONC 33.4 g/dL (32.0-36.0); MEAN CORPUSCULAR VOLUME 83.8 fL (79-99); MONOCYTES % (AUTO) 5.1 % (3.0-13.0); PLATELET COUNT (AUTO) 255 K/uL (130-400); RED BLOOD CELL COUNT(AUTO) 4.14 MIL/uL (4.00-5.50); RED CELL DISTRIBUTION WIDTH 15.3 % (11.0-15.5); WHITE BLOOD COUNT (AUTO) 13.8 K/uL (4.8-10.8)
[2023-03-19 09:30] LABS: CREATININE 0.6 mg/dL (0.5-1.5); POTASSIUM 4.4 mmol/L (3.5-5.1)
[2023-03-19 09:35] LABS: BACTERIA,URINE RARE /HPF (None Seen); MUCUS,URINE RARE LPF (None Seen); SQUAMOUS EPITHELIAL CELL,UR RARE /HPF (0-2); WBC,URINE 0-1 /HPF (0-1)
[2023-03-19 09:35] LABS: ALBUMIN 3.1 g/dL (3.5-5.0); TOTAL PROTEIN, SERUM 7.4 g/dL (6.0-8.3)
[2023-03-19 09:46] VITALS: BP 130/76
[2023-03-19] MEDS ORDERED: CIPR750T17 PO (10:10)
[2023-03-19] MEDS ORDERED: LOPE2CAP PO (10:10)
[2023-03-19] MEDS ORDERED: ONDA22I PO (10:10)
[2023-03-19] MEDS ORDERED: LEVOFLOXACIN 750 MG TABLET ONE (10:13)
[2023-03-19] MEDS ORDERED: LEVOFLOXACIN 750 MG TABLET PO SCH (10:30)
== END 2023-03-19 10:28 | disposition home or self-care (01) ==
LOC: EDH 07:58
DX: K52.9 Noninfective gastroenteritis and colitis, unspecified (principal); I10 Essential (primary) hypertension; E78.00 Pure hypercholesterolemia, unspecified; F31.9 Bipolar disorder, unspecified; F41.9 Anxiety disorder, unspecified; G62.9 Polyneuropathy, unspecified; Z79.84 Long term (current) use of oral hypoglycemic drugs; Z79.899 Other long term (current) drug therapy; Z88.1 Allergy status to other antibiotic agents; Z88.2 Allergy status to sulfonamides; Z90.49 Acquired absence of other specified parts of digestive tract; Z98.890 Other specified postprocedural states
CPT/HCPCS: 99284; 96374; 96361; 96375; 80053; 83690; 85025; 82948; 82010 ×2; 81001; 36415; J7030; J2405; J2270

== ENCOUNTER 2023-06-13 17:30 | Emergency (ER) | payer MEDICAID ==
[~2023-06-13] VITALS: Ht 162.6 cm; Wt 121.6 kg
[~2023-06-13 17:30] MED LIST changes: +CIPR750T17 PO; +LOPE2CAP PO; +ONDA22I PO
[2023-06-13 17:35] VITALS: BP 164/89; PULSE 91; RESP 16
[2023-06-13] MEDS ORDERED: HYDROCODONE/ACETAMINOPHEN 5/325 MG TAB PO ONE (18:00)
[2023-06-13] MEDS ORDERED: IBUPROFEN 600 MG TABLET PO ONE (18:00)
[2023-06-13] MEDS ORDERED: DIAZEPAM 5 MG TABLET PO ONE (18:00)
[2023-06-13] MEDS ORDERED: PREDNISONE 20 MG TABLET PO ONE (18:00)
[2023-06-13] MEDS ORDERED: PRED20TA3 PO (19:25)
[2023-06-13] MEDS ORDERED: IBUP-2070 PO (19:25)
== END 2023-06-13 21:13 | disposition home or self-care (01) ==
LOC: EDH 17:30
DX: S20.212A Contusion of left front wall of thorax, initial encounter (principal); W18.39XA Other fall on same level, initial encounter; Y93.89 Activity, other specified; Y92.89 Other specified places as the place of occurrence of the external cause; Y99.8 Other external cause status
CPT/HCPCS: 71101

== ENCOUNTER 2023-08-14 11:18 | Emergency (ER) | payer MEDICAID ==
[~2023-08-14] VITALS: Ht 162.6 cm; Wt 114.8 kg
[~2023-08-14 11:18] MED LIST changes: -ACET-2079 PO; +ALPR2TAB2 PO; -ATOR40TA71 PO; -CIPR750T17 PO; +DULO30CA52 PO; -FERR325T22 PO; +FURO-151 PO; -FURO40TA5 PO; +GABA600T10 PO; +HC2530O TP; -HYDR-3422 PO; -IBUP-2070 PO; -INSREG SQ; -INSU100I35 SQ; +INSU10VI3 SQ; +LISI40TA9 PO; -LOPE2CAP PO; -ONDA22I PO; -ONDA4TAB10 PO; +QUET100T PO; -QUET100T34 PO; +QUET50TA PO; +SIMV-43 PO; +VENL-191 PO; -VENL75CA97 PO
[2023-08-14 12:21] LABS: BASOPHILS # (AUTO) 0.05 K/uL (0.00-0.20); BASOPHILS % (AUTO) 0.4 % (0.0-5.0); EOSINOPHILS # (AUTO) 0.63 K/uL (0.00-0.70); HEMATOCRIT 40.7 % (36-48); IMMATURE GRANULOCYTE ABSOLUTE 0.05 K/uL (0-1); LYMPHOCYTES # (AUTO) 1.9 K/uL (1.0-4.8); LYMPHOCYTES % (AUTO) 14.7 % (21.0-51.0); MEAN CORPUSCULAR HEMOGLOBIN 26.8 pg (27.0-33.0); MEAN CORPUSCULAR HGB CONC 32.4 g/dL (32.0-36.0); MEAN CORPUSCULAR VOLUME 82.7 fL (79-99); MONOCYTES # (AUTO) 0.6 K/uL (0.1-1.0); MONOCYTES % (AUTO) 4.9 % (3.0-13.0); NEUTROPHILS # (AUTO) 9.4 K/uL (1.8-7.7); NEUTROPHILS % (AUTO) 74.6 % (40.0-77.0); PLATELET COUNT (AUTO) 343 K/uL (130-400); RED BLOOD CELL COUNT(AUTO) 4.92 MIL/uL (4.00-5.50); WHITE BLOOD COUNT (AUTO) 12.6 K/uL (4.8-10.8)
[2023-08-14 12:48] LABS: CREATININE 1.1 mg/dL (0.5-1.5)
[2023-08-14 12:53] LABS: ALBUMIN 3.6 g/dL (3.5-5.0); BILIRUBIN,TOTAL 0.4 mg/dL (0.2-1.0)
[2023-08-14 15:14] LABS: APPEARANCE,URINE CLEAR (CLEAR); BILIRUBIN,URINE NEGATIVE (NEGATIVE); COLOR,URINE LIGHT-YELLOW (YELLOW); GLUCOSE, URINE (UA) 70 mg/dL (NEGATIVE); KETONES,URINE NEGATIVE (NEGATIVE); LEUKOCYTE ESTERASE ,URINE NEGATIVE Leu/uL (NEGATIVE); NITRATE,URINE NEGATIVE (NEGATIVE); OCCULT BLOOD,URINE NEGATIVE (NEGATIVE); PH,URINE 5.5 (5.0-8.0); PROTEIN,URINE 10 mg/dL (NEGATIVE); UROBILINOGEN,URINE 0.2 mg/dL (0.2-1.0)
[2023-08-14 15:15] LABS: HCG,QUALITATIVE URINE NEGATIVE (NEGATIVE)
[2023-08-14 15:16] LABS: ADD UA MICROSCOPIC YES
[2023-08-14 15:19] LABS: BACTERIA,URINE RARE /HPF (None Seen); MUCUS,URINE RARE LPF (None Seen); RBC,URINE 0-1 /HPF (0-1); SQUAMOUS EPITHELIAL CELL,UR FEW /HPF (0-2)
[2023-08-14] MEDS ORDERED: 0.9%NACL 1000ML 1,000 ML IV ONE (17:30)
[2023-08-14] MEDS ORDERED: ONDANSETRON 4MG INJ IVP ONE (18:00)
[2023-08-14] MEDS ORDERED: MORPHINE 2 MG SYG IVP ONE (18:00)
[2023-08-14] MEDS ORDERED: PANTOPRAZOLE 40 MG/VIAL IVP ONE (18:00)
[2023-08-14] MEDS ORDERED: KETOROLAC 15MG/ML VIAL (15MG/ML) IV ONE (21:00)
[2023-08-14] MEDS ORDERED: MACR100 PO (21:01)
[2023-08-14] MEDS ORDERED: CYCL-309 PO (21:01)
[2023-08-14] MEDS ORDERED: LIDOP TP (21:01)
[2023-08-14 21:24] VITALS: BP 124/80; PULSE 90; RESP 20; O2SAT 97
== END 2023-08-14 22:17 | disposition home or self-care (01) ==
LOC: EDH 11:18
DX: M62.830 Muscle spasm of back (principal); N39.0 Urinary tract infection, site not specified; E11.9 Type 2 diabetes mellitus without complications; E86.0 Dehydration; R11.2 Nausea with vomiting, unspecified; E78.00 Pure hypercholesterolemia, unspecified; F41.9 Anxiety disorder, unspecified; F31.9 Bipolar disorder, unspecified; I10 Essential (primary) hypertension; Z79.84 Long term (current) use of oral hypoglycemic drugs; Z79.899 Other long term (current) drug therapy; Z88.1 Allergy status to other antibiotic agents; Z88.2 Allergy status to sulfonamides; Z90.49 Acquired absence of other specified parts of digestive tract
CPT/HCPCS: 99285; 93925; 96374; 96361; 96375; 76705; 71045; 84484; 80053; 83690; 85025; 81001; 81025; 36415; 93005; J2270; J7030; J2405; J1885; S0164; C9113

== ENCOUNTER 2023-11-04 14:42 | Emergency (ER) | payer MEDICAID, OTHER ==
[~2023-11-04] VITALS: Ht 162.6 cm; Wt 123.8 kg
[~2023-11-04 14:42] MED LIST changes: +CYCL-309 PO; +LIDOP TP; +MACR100 PO
[2023-11-04 16:50] LABS: BASOPHILS # (AUTO) 0.04 K/uL (0.00-0.20); BASOPHILS % (AUTO) 0.3 % (0.0-5.0); EOSINOPHILS # (AUTO) 0.59 K/uL (0.00-0.70); EOSINOPHILS % (AUTO) 4.7 % (0.0-8.0); HEMATOCRIT 35.6 % (36-48); IMMATURE GRANULOCYTE ABSOLUTE 0.07 K/uL (0-1); LYMPHOCYTES # (AUTO) 2.9 K/uL (1.0-4.8); LYMPHOCYTES % (AUTO) 23.4 % (21.0-51.0); MEAN CORPUSCULAR HEMOGLOBIN 27.7 pg (27.0-33.0); MEAN CORPUSCULAR HGB CONC 33.4 g/dL (32.0-36.0); MONOCYTES # (AUTO) 0.7 K/uL (0.1-1.0); MONOCYTES % (AUTO) 5.7 % (3.0-13.0); NEUTROPHILS # (AUTO) 8.2 K/uL (1.8-7.7); NEUTROPHILS % (AUTO) 65.3 % (40.0-77.0); PLATELET COUNT (AUTO) 372 K/uL (130-400); RED BLOOD CELL COUNT(AUTO) 4.29 MIL/uL (4.00-5.50); WHITE BLOOD COUNT (AUTO) 12.6 K/uL (4.8-10.8)
[2023-11-04 16:58] LABS: CREATININE 0.7 mg/dL (0.5-1.5); POTASSIUM 3.5 mmol/L (3.5-5.1)
[2023-11-04 17:03] LABS: ALBUMIN 3.1 g/dL (3.5-5.0); BILIRUBIN,TOTAL 0.4 mg/dL (0.2-1.0); TOTAL PROTEIN, SERUM 7.5 g/dL (6.0-8.3)
[2023-11-04] MEDS ORDERED: KETOROLAC 30MG VIAL (30MG/ML) ONE (17:06)
[2023-11-04 19:51] LABS: APPEARANCE,URINE CLEAR (CLEAR); BILIRUBIN,URINE NEGATIVE (NEGATIVE); COLOR,URINE YELLOW (YELLOW); GLUCOSE, URINE (UA) NEGATIVE (NEGATIVE); KETONES,URINE NEGATIVE (NEGATIVE); LEUKOCYTE ESTERASE ,URINE NEGATIVE Leu/uL (NEGATIVE); NITRATE,URINE NEGATIVE (NEGATIVE); OCCULT BLOOD,URINE NEGATIVE (NEGATIVE); PROTEIN,URINE 20 mg/dL (NEGATIVE); UROBILINOGEN,URINE 0.2 mg/dL (0.2-1.0)
[2023-11-04 19:54] LABS: ADD UA MICROSCOPIC YES
[2023-11-04 19:56] LABS: BACTERIA,URINE RARE /HPF (None Seen); MUCUS,URINE FEW LPF (None Seen); SQUAMOUS EPITHELIAL CELL,UR FEW /HPF (0-2); WBC,URINE 0-1 /HPF (0-1)
[2023-11-04] MEDS ORDERED: GABA300C PO (20:27)
[2023-11-04 20:28] VITALS: BP 167/85; PULSE 86; RESP 16; O2SAT 98
[2023-11-04] MEDS ORDERED: GABAPENTIN 300 MG CAPSULE PO ONE (20:30)
== END 2023-11-04 20:37 | disposition home or self-care (01) ==
LOC: EDH 14:42
DX: E11.42 Type 2 diabetes mellitus with diabetic polyneuropathy (principal); E11.40 Type 2 diabetes mellitus with diabetic neuropathy, unspecified; E66.01 Morbid (severe) obesity due to excess calories; I10 Essential (primary) hypertension; F41.9 Anxiety disorder, unspecified; Z68.42 Body mass index [BMI] 45.0-49.9, adult; E78.00 Pure hypercholesterolemia, unspecified; Z79.899 Other long term (current) drug therapy; Z98.890 Other specified postprocedural states; Z90.49 Acquired absence of other specified parts of digestive tract
CPT/HCPCS: 99285; 71045; 84484; 80053; 85025; 81001; 36415; 93005; J1885

== ENCOUNTER 2023-12-11 12:02 | Emergency (ER) | payer BC, OTHER ==
[~2023-12-11] VITALS: Ht 162.6 cm; Wt 120.2 kg
[~2023-12-11 12:02] MED LIST changes: +GABA300C PO
[2023-12-11 12:49] LABS: HEMATOCRIT 41.1 % (36-48); MEAN CORPUSCULAR HEMOGLOBIN 27.1 pg (27.0-33.0); MEAN CORPUSCULAR HGB CONC 32.4 g/dL (32.0-36.0); MEAN CORPUSCULAR VOLUME 83.7 fL (79-99); RED BLOOD CELL COUNT(AUTO) 4.91 MIL/uL (4.00-5.50); RED CELL DISTRIBUTION WIDTH 14.6 % (11.0-15.5); WHITE BLOOD COUNT (AUTO) 11.2 K/uL (4.8-10.8)
[2023-12-11] MEDS ORDERED: ONDANSETRON 4MG INJ ONE (13:12)
[2023-12-11 13:40] LABS: ALBUMIN 3.4 g/dL (3.5-5.0); BILIRUBIN,TOTAL 0.5 mg/dL (0.2-1.0); CREATININE 0.6 mg/dL (0.5-1.5); TOTAL PROTEIN, SERUM 8.1 g/dL (6.0-8.3)
[2023-12-11 14:54] LABS: APPEARANCE,URINE CLEAR (CLEAR); BILIRUBIN,URINE NEGATIVE (NEGATIVE); COLOR,URINE COLORLESS (YELLOW); GLUCOSE, URINE (UA) >=1000 mg/dL (NEGATIVE); KETONES,URINE 20 mg/dL (NEGATIVE); LEUKOCYTE ESTERASE ,URINE NEGATIVE Leu/uL (NEGATIVE); NITRATE,URINE NEGATIVE (NEGATIVE); OCCULT BLOOD,URINE SMALL (NEGATIVE); PH,URINE 7.5 (5.0-8.0); PROTEIN,URINE 10 mg/dL (NEGATIVE); UROBILINOGEN,URINE 0.2 mg/dL (0.2-1.0)
[2023-12-11 14:57] LABS: ADD UA MICROSCOPIC YES
[2023-12-11 14:59] LABS: WBC,URINE 0-1 /HPF (0-1)
[2023-12-11] MEDS ORDERED: MAG/ALUM/SIMETH 30 ML UDCUP PO ONE (15:30)
[2023-12-11] MEDS ORDERED: FAMOTIDINE 20MG VIAL IV ONE (15:30)
[2023-12-11] MEDS ORDERED: DICYCLOMINE HCL 10 MG/5 ML ML PO ONE (15:30)
[2023-12-11] MEDS ORDERED: 0.9%NACL 1000ML 1,000 ML IV ONE (15:30)
[2023-12-11] MEDS ORDERED: LIDOCAINE HCL 2% VISCOUS 15 ML UDCUP PO ONE (15:30)
[2023-12-11] MEDS ORDERED: METOCLOPRAMIDE 10 MG/2 ML VIAL IM ONE (15:30)
[2023-12-11] MEDS ORDERED: IOHEXOL 350 MG/ML 100ML INFUS..BTL IV ONE (16:25)
[2023-12-11] MEDS ORDERED: METO10TA41 PO (17:21)
[2023-12-11 17:46] VITALS: BP 135/79; PULSE 96; RESP 18; O2SAT 97
== END 2023-12-11 17:47 | disposition home or self-care (01) ==
LOC: EDH 12:02
DX: K29.70 Gastritis, unspecified, without bleeding (principal); E11.65 Type 2 diabetes mellitus with hyperglycemia; E78.00 Pure hypercholesterolemia, unspecified; F31.9 Bipolar disorder, unspecified; F41.9 Anxiety disorder, unspecified; I10 Essential (primary) hypertension; Z79.4 Long term (current) use of insulin; Z79.84 Long term (current) use of oral hypoglycemic drugs; Z79.899 Other long term (current) drug therapy; Z88.1 Allergy status to other antibiotic agents; Z88.2 Allergy status to sulfonamides; Z90.49 Acquired absence of other specified parts of digestive tract
CPT/HCPCS: 99284; 74177; 96374; 71045; 96361; 84484; 80053; 83690; 85027; 81001; 36415; 96372; 93005; J3490; J7030; J2405; J2765; Q9967